=== PATIENT | male | born 1950 | race Caucasian/White ===

== ENCOUNTER 2019-10-18 14:38 | Outpatient (CLI) | payer MEDICARE, OTHER, SELFPAY ==
--- NOTE | 2019-10-18 14:30 | XR_ITS ---
WS: [id number] XR KUB [id number] REASON FOR EXAM: CALCULUS FINDINGS: Considerable fecal residue is seen throughout the colon the previously described stone in t he left kidney is not well seen and the right kidney due to overriding feces. XR/XR KUB [id number] IMPRESSION: No definite stones today by radiographic evaluation Fecal stasis
== END 2019-10-18 14:39 | disposition home or self-care (01) ==
LOC: RAD 14:44
PROVIDERS: PCP Emergency Medicine; Visit Provider Urology
DX: N20.0 Calculus of kidney (principal); N20.1 Calculus of ureter
CPT/HCPCS: 74018; 81001

== ENCOUNTER 2020-10-17 09:52 | Outpatient (CLI) | payer MEDICARE, BC, SELFPAY ==
--- NOTE | 2020-10-17 10:00 | XR_ITS ---
WS: [id number] Exam: XR KUB [id number] Date/Time of Exam: 10/17/2020 10:02 AM Reason For Exam: RENAL STONE No bowel obstruction or free air. No calcifications seen in the region of the kidneys. Nonspecific pe lvic calcifications are noted. Visualized organ margins are intact. Moderate DJD of both hips. XR/XR KUB [id number] IMPRESSION: 1. No acute abdominal finding.
== END 2020-10-17 09:53 | disposition home or self-care (01) ==
LOC: RAD 09:59
PROVIDERS: PCP Family Medicine; Visit Provider Urology
DX: N20.0 Calculus of kidney (principal)
CPT/HCPCS: 74018; 81003

== ENCOUNTER 2021-04-17 10:17 | Outpatient (CLI) | payer MEDICARE, BC, SELFPAY ==
--- NOTE | 2021-04-17 10:00 | XR_ITS ---
WS: [id number] XR KUB [id number] REASON FOR EXAM: BILATERAL RENAL CALCULUS FINDINGS: CT scan from 2018 demonstrated small right intrarenal calculus and multiple left intrarenal calculi. No definite renal calculi or other urinary tract calculi are identified on this examination. Large am ount of stool and gas overlying the kidneys. No other significant abnormality of the abdomen or pelvis. XR/XR KUB [id number] IMPRESSION: Previously demonstrated bilateral renal calculi not readily identifiable on the examination.
== END 2021-04-17 10:18 | disposition home or self-care (01) ==
LOC: RAD 10:22
PROVIDERS: PCP Family Medicine; Visit Provider Urology
DX: N20.0 Calculus of kidney (principal)
CPT/HCPCS: 74018; 81003

== ENCOUNTER 2022-04-14 10:12 | Outpatient (CLI) | payer MEDICARE, BC, SELFPAY ==
--- NOTE | 2022-04-14 10:24 | XR_ITS ---
WS: [id number] KUB, AP view, 04/14/2022 Clinical Data: Urolithiasis Comparison: KUB, 04/17/2021 Findings: No abnormal intraabdominal masses or calcifications are seen. There is no dilatated small bowel or ev idence of obstruction. The kidneys are obscured by overlying fecal material. There is a large amount of feces throughout the colon. XR/XR KUB [id number] Impression: Negative KUB.
== END 2022-04-14 10:13 | disposition home or self-care (01) ==
LOC: RAD 10:18
PROVIDERS: PCP Family Medicine; Visit Provider Urology
DX: N20.9 Urinary calculus, unspecified (principal); N52.9 Male erectile dysfunction, unspecified
CPT/HCPCS: 74018; 81003; 99213